=== PATIENT | female | born 1980 | race African-American/Black ===

== ENCOUNTER 2016-10-28 03:46 | Emergency (ER) | payer BC ==
[~2016-10-28] VITALS: Ht 172.7 cm; Wt 63.7 kg
[2016-10-28 04:45] LABS: HEMATOCRIT 33.1 % (36.0-46.0); MCH 27.7 PG (29.0-34.0); MCHC 31.1 G/DL (30.0-36.0); MEAN PLAT.VOLUME 11.4 uM^3 (9.5-12.4); PLATELET COUNT 160 K/uL (156-360); RBC DIS.WIDTH-CV 13.8 % (11.8-14.6); RBC DIS.WIDTH-SD 44.4 % (39-53); RED BLOOD COUNT 3.72 M/uL (3.80-5.20)
[2016-10-28 04:54] LABS: CHLORIDE 107 mEq/L (99-109); POTASSIUM 3.5 mEq/L (3.7-5.4); SODIUM 137 mEq/L (136-147)
[2016-10-28 04:56] LABS: GLUCOSE 110 mg/dL (70-99)
[2016-10-28 04:58] LABS: ANION GAP 7 MEQ/L (2-14); TOTAL BILIRUBIN 0.3 mg/dL (0.0-1.0)
[2016-10-28 05:00] LABS: ALKALINE PHOSPHATASE 45 IU/L (3-129); GFR ESTIMATE (CALCULATED) > 59 mL/min/
[2016-10-28 05:01] LABS: UREA NITROGEN (BUN) 11 mg/dL (9-23)
[2016-10-28 05:04] LABS: LIPASE 13 U/L (1.0-51.0)
[2016-10-28 05:51] LABS: ADD MIUA? YES; BILIRUBIN NEGATIVE; BLOOD LARGE; COLOR RED ((YELLOW)); GLUCOSE (STRIP) NEGATIVE; KETONES NEGATIVE; LEUKOCYTES MODERATE; NITRITE NEGATIVE; PROTEIN (STRIP) 100; SPECIFIC GRAVITY 1.013 (1.000-1.030); UROBILINOGEN 0.2 MG/DL (0.2-1.0)
[2016-10-28 06:00] LABS: BACTERIA NONE SEEN /HPF; EPITHELIAL CELLS NONE SEEN /HPF; MUCUS NONE SEEN /LPF; RED BLOOD CELLS TNTC /HPF (0-5); UCUL ADDED? NO; WHITE BLOOD CELLS 20-30 /HPF (0-5)
[2016-10-28] MEDS ORDERED: NORCO 5/3251 TABLET PO (06:00)
[2016-10-28] MEDS ORDERED: ZOFRAN8 MG PO (06:00)
[2016-10-28] MEDS ORDERED: KEFLEX250 MG PO (06:17)
[2016-10-28 06:28] VITALS: BP 127/66
== END 2016-10-28 06:30 | disposition home or self-care (01) ==
LOC: EME 03:46
PROVIDERS: Emergency Medicine
DX: R10.2 Pelvic and perineal pain (principal); D25.9 Leiomyoma of uterus, unspecified; N30.91 Cystitis, unspecified with hematuria; N94.6 Dysmenorrhea, unspecified
CPT/HCPCS: 74176; 80053; 81003; 83690; 85027; 99281; 99285; J7030

== ENCOUNTER 2017-03-21 08:40 | Day surgery (SDC) | payer BC ==
[~2017-03-21] VITALS: Ht 172.7 cm; Wt 65.2 kg
[~2017-03-21 08:40] MED LIST: KEFLEX250 MG PO; NORCO 5/3251 TABLET PO; ZOFRAN8 MG PO
[2017-03-21] MEDS ORDERED: OMEGA 3 500 SO1 EACH PO (09:07)
[2017-03-21 09:21] VITALS: BP 109/72
[2017-03-21 09:30] LABS: EOSINOPHIL (%) 2.4 % (0-5); EOSINOPHIL COUNT 0.1 K/uL (0-0.3); HEMATOCRIT 37.9 % (36.0-46.0); LYMPHOCYTE COUNT 1.3 K/uL (1.0-2.8); MCH 28.6 PG (29.0-34.0); MCHC 31.7 G/DL (30.0-36.0); MCV 90.5 FL (83-99); MEAN PLAT.VOLUME 10.9 uM^3 (9.5-12.4); MONOCYTE (%) 8.3 % (3-12); MONOCYTE COUNT 0.3 K/uL (0-0.8); NEUTROPHIL (%) 53.8 % (45-76); PLATELET COUNT 148 K/uL (156-360); RBC DIS.WIDTH-CV 11.4 % (11.8-14.6); RBC DIS.WIDTH-SD 37.6 % (39-53); RED BLOOD COUNT 4.19 M/uL (3.80-5.20); WHITE BLOOD COUNT 3.7 K/uL (4.1-10.2)
[2017-03-21] MEDS ORDERED: MOTRIN800 MG PO (12:46)
[2017-03-21 14:15] VITALS: BP 111/68
[2017-03-21 15:26] VITALS: BP 113/58
[2017-03-21 15:49] VITALS: BP 118/70
== END 2017-03-21 15:50 | disposition home or self-care (01) ==
LOC: SDC 08:40
PROVIDERS: Obstetrics & Gynecology
PROC: 0UB98ZZ Excision of Uterus, Via Natural or Artificial Opening Endoscopic (ICD-10-PCS; principal; 2017-03-21)
DX: D25.0 Submucous leiomyoma of uterus (principal); N92.0 Excessive and frequent menstruation with regular cycle; D64.9 Anemia, unspecified
CPT/HCPCS: 84702; 85025; 88305; J0690; J1170; J1885; J2175; J2250; J2405; J3010